=== PATIENT | female | born 2005 | race Two or more races ===

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

== ENCOUNTER 2023-11-13 15:16 | Emergency (ER) | payer MEDICAID ==
[~2023-11-13] VITALS: Ht 167.6 cm; Wt 110.0 kg
[~2023-11-13 15:16] MED LIST changes: +PHEN-922 PO; -PHEN200T16 PO; -cefTRIAXone 1GM/50ML D5W 50 ML IV ONE
[2023-11-13 16:23] LABS: Basophils # (auto) 0 10 ^3/uL (0-0.2); Eosinophils # (auto) 0 10 ^3/uL (0-0.8); Eosinophils % (auto) 0.1 % (0.0-7.0); Hematocrit 27.7 % (36.0-46.0); Hemoglobin 8.3 g/dL (12.2-16.2); Mean Corpuscular Hemoglobin 18.1 pg (28.0-32.0); Monocytes # (auto) 0.6 10 ^3/uL (0-1.3); White Blood Cell 9.5 10^3/uL (4.4-10.8)
[2023-11-13 16:24] LABS: Basophils % (auto) 0.5 % (0.0-2.0); Lymphocytes # (auto) 1.4 10 ^3/uL (0.4-5.4); Mean Corpuscular Hgb Conc. 30.1 g/dL (32.0-36.0); Mean Corpuscular Volume 60.1 fL (80.0-100.0); Monocytes % (auto) 6.4 % (0.0-12.0); Neutrophils # (auto) 7.4 10 ^3/uL (1.6-8.6); Platelet Count (auto) 371 10^3/uL (140-450); Red Blood Cells 4.61 10^6/uL (4.0-5.20)
[2023-11-13 16:27] LABS: Red Cell Distribution Width 21.5 % (11.8-14.3)
[2023-11-13 16:36] LABS: Alanine Aminotransferase 12 U/L (7-40); Albumin 4.8 g/dL (3.2-4.8); Alkaline Phosphatase 51 U/L (46-116); Anion Gap 7 (5-15); Aspartate Aminotransferase 10 U/L (13-40); BUN/Creatinine Ratio 20.4 (10.0-20.0); Bilirubin, Total 0.5 mg/dL (0.2-1.0); Blood Urea Nitrogen 11 mg/dL (9-23); Carbon Dioxide 21 mmol/L (20-30); Chloride 108 mmol/L (98-107); Glucose 92 mg/dL (74-106); Potassium 4.1 mmol/L (3.5-5.1); Sodium 136 mmol/L (136-145); Total Protein 7.3 g/dL (5.7-8.2)
[2023-11-13 17:17] LABS: Anisocytosis Slight; Hypochromia Moderate; Platelet Estimate Adequate
[2023-11-13 17:19] LABS: Ovalocytes FEW
[2023-11-13 18:41] LABS: INR 1.05 (0.9-1.15); Partial Thromboplastin Time 20.1 SEC (24.5-34.5); Prothrombin Time 11.1 sec (9.3-11.8)
[2023-11-13] MEDS: ACETAMINOPHEN 325 MG TAB PO ONE (19:31)
[2023-11-13 20:20] VITALS: BP 123/74; PULSE 78; RESP 18; TEMP 98; O2SAT 99
== END 2023-11-13 20:28 | disposition home or self-care (01) ==
LOC: EDBD 15:16 → ER 15:16
DX: O36.5990 Maternal care for other known or suspected poor fetal growth, unspecified trimester, not applicable or unspecified (principal); O34.10 Maternal care for benign tumor of corpus uteri, unspecified trimester; R10.2 Pelvic and perineal pain; O26.899 Other specified pregnancy related conditions, unspecified trimester; N83.12 Corpus luteum cyst of left ovary; Z3A.00 Weeks of gestation of pregnancy not specified; Z79.899 Other long term (current) drug therapy
CPT/HCPCS: 36415; 76801; 80053; 84702; 85025; 85610; 85730; 86850; 86900; 86901; 86920